=== PATIENT | male | born 1980 | race Hispanic/Latino ===

== ENCOUNTER 2023-01-22 15:38 | Emergency (ER) | payer BC ==
[~2023-01-22] VITALS: Ht 188 cm; Wt 130.2 kg
[2023-01-22 16:06] VITALS: BP 140/84
[2023-01-22] MEDS ORDERED: METH-811 PO (16:09)
[2023-01-22] MEDS ORDERED: IBUP-2070 PO (16:09)
== END 2023-01-22 16:20 | disposition home or self-care (01) ==
LOC: EDH 15:38
DX: S23.8XXA Sprain of other specified parts of thorax, initial encounter (principal); R10.9 Unspecified abdominal pain; R05.9 Cough, unspecified; I10 Essential (primary) hypertension; X58.XXXA Exposure to other specified factors, initial encounter; Y93.89 Activity, other specified; Y92.89 Other specified places as the place of occurrence of the external cause; Y99.8 Other external cause status